=== PATIENT | female | born 1960 | race Caucasian/White ===

== ENCOUNTER → 2020-03-10 | Day surgery (SDC) | payer OTHER ==
--- NOTE | 2020-03-09 18:20 | Pre Op History & Physical ---
DATE OF SURGERY: 03/10/2020. CHIEF COMPLAINT: Lesion in the right anterior tonsillar pillar. HISTORY OF PRESENT ILLNESS: This 59-year-old female has a one-month history of lesion in the right anterior tonsillar pillar. The patient has no dysphagia, odynophagia, or shortness of breath. She has no hoarseness. The patient has stopped smoking about 20 years ago, she is a social drinker. The lesion was initially noted by her dentist and on followup was still present. The area is not painful. The size of the lesion is the same. REVIEW OF SYSTEMS: System review showed no recent cardiovascular, respiratory, or GI problem. PAST MEDICAL HISTORY: The patient has history of aortic valvular disease, had an aortic valve replacement. She has no hypertension or diabetes. PAST SURGICAL HISTORY: The patient has aortic valve replacement, laminectomy, and three C sections. ALLERGIES: SHE IS ALLERGIC TO PENICILLIN, CEPHALOSPORINS, AND IODINE. MEDICATIONS: She is on Eliquis, , Lasix, metoprolol, Klor-Con, aspirin, Tylenol, Zetia, and SOCIAL HISTORY: She stopped smoking about 20 years ago. She is a social drinker. FAMILY HISTORY: Noncontributory. PHYSICAL EXAMINATION: VITAL SIGNS: The patient's vital signs were within normal limits. HEENT: Ear exam showed normal tympanic membrane bilaterally. Nasal exam showed no obvious abnormality. Oropharynx and oral cavity show lesion in the anterior tonsillar pillar about half a cm in the superior portion. No other abnormality was noted. NECK: No lymph node or thyroid palpable. CHEST: Showed good air entry bilaterally. CARDIOVASCULAR: S1, S2. No murmur noted. ASSESSMENT AND PLAN: Mrs. Tolentino has lesion in the right anterior tonsillar pillar. A CT scan of the neck with contrast was performed. This did not show any other abnormality. The suggested treatment is panendoscopy, excisional biopsy and other necessary procedure. Complication of procedure includes, but not limited to bleeding, infection, perforation of the esophagus, pneumomediastinum, oral incompetence, wound breakdown, poor cosmetic result, hypernasal speech, persistent recurrence of the lesion and bleeding disorder. The alternative will be continue observation, biopsy of lesion in the office setting. The patient has been advised to stop her aspirin at least seven days before surgery and she was told by her lean manager that she could stop her Eliquis about three days before. Preoperatively, the patient was noted to have an elevated potassium. She was advised to stop her potassium about five days before surgery. The patient has elected to undergo surgical procedure. MD AZAM Washburn/MODL /[id number]
[~2020-03-10] MED LIST: ACETYL PO; ALPHA LIPOIC A200 MG PEG; ASPIR 8181 MG PO; BUPIVACAINE 0.5%/EPI 30 ML SDV INJ ONE; CLINDAMYCIN 300MG 50 ML IV ONE; CURCUMIN PO; DEXAMETHASONE SOD PHOS INJ 4 MG/ML VIAL ONE; DHEA25 MG PO; ELIQUIS2.5 MG PO; EPINEPHRINE HCL 1:1000 1ML 1 MG/ML AMP ONE; ETOMIDATE 2 MG/ML 10 ML INJ IV ONE; FENTANYL CITRATE/PF 100MCG/2 ML INJ ONE; FUROSEMIDE40 MG PO; GEMFIBROZIL600 MG PO; KLOR-CON20 MEQ PO; LIDOCAINE 1% W/EPINEPHRINE 20 ML VIAL ONE; LIDOCAINE HCL (LTA) 4 ML SOLN ONE; LIDOCAINE HCL 2% JELLY 5 ML TUBE ONE; LIDOCAINE HCL 2% LOCAL INJ 5 ML SDV VIAL INJ ONE; METOPROLOL SUCC25 MG PO; MIDAZOLAM HCL 2 MG/2 ML VIAL ONE; NIFEDIPINE10 MG PO; OMEGA 3-6-9 11200 M1 PO; ONDANSETRON HCL INJ 2MG/ML 2ML 2 MG/ML VIAL ONE; OXYMETAZOLINE HCL 0.05% NAS 1 SPRAY BTL ONE; PHOSPHATIDYLSERI1 GM PO; ROCURONIUM BROMIDE 10 MG/ML 5ML VIAL IV ONE; SCOPOLAMINE 1.5 MG PATCH ONE; SEVOFLURANE INHAL SOLN 250 ML PEN BTL ONE; SOMATROPIN INJ; SUCCINYLCHOLINE CHLORIDE 20 MG/ML 10ML VIAL ONE; TYLENOL EXTRA500 MG PO; UBIQUINOL100 MG PO; VITAMIN D310 MCG PO; ZETIA10 MG PO; [UNRECOGNIZED DRUG - OTHER] PO
--- NOTE | 2020-03-10 07:05 | NUR ---
SPIRITUAL CARE - Pre-Surgery Assessment: Pt in bed. Pt's at bedside. Pt reported supportive attention from family and friends. Intervention: Provided pastoral presence, hospitality, and sympathetic listening. Acquainted pt with availability of supervisor beater room while hospitalized. Outcome: Pt expressed appreciation for visit. No need for follow up indicated at this time. MOHAMUD [facility] Department O: [phone]
[2020-03-10 09:25] VITALS: BP 158/85
--- NOTE | 2020-03-10 10:48 | Operative Report ---
DATE OF PROCEDURE: 03/10/2020 SURGEON: Ramiro Spivey MD CHIEF COMPLAINT: Lesion in the right tonsil. POSTOPERATIVE DIAGNOSIS: Lesion in the right tonsil. PROCEDURES: Direct laryngoscopy, rigid esophagoscopy, rigid bronchoscopy, excision of lesion in the right tonsil fossas with appropriate closure. ANESTHESIA: Anesthesiology Group. INDICATIONS: This 59-year-old female, who was noted to have a lesion in the right tonsillar fossa by her dentist about a few months ago. Lesion has not changed in size. The patient is a nonsmoker. No trauma to the area was noted. She is a social drinker. On examination, she was noted to have a lesion in superior midportion of the tonsillar fossa on the right side about 0.5 cm. No other abnormality was noted, it was decided that panendoscopy, excisional biopsy of the lesion and other necessary procedure will be beneficial for her. DESCRIPTION OF PROCEDURE: The patient was taken to the operating room, put under general anesthesia, endotracheally intubated. The patient was asked to start her back from 24 hours before surgery and was given clindamycin preop because of her aortic valve replacement. The patient was positioned and rigid esophagoscopy was performed. The esophagoscope was passed through the cricopharyngeus muscle. The esophagus was examined to about 25 cm from the incisor. No abnormality was noted. The esophagoscope was retrieved. The rigid bronchoscopy was performed. A size #4 bronchoscope with Mcpherson wire was used. The bronchoscope was passed parallel to the endotracheal tube. Endotracheal tube cuff was deflated. Trachea was examined down to the bette. No abnormality was noted. The bronchoscope was retrieved. The direct laryngoscopy was performed. The Cliff laryngoscope was used. Oropharynx and oral cavity were examined. The lesion was noted in the right tonsillar fossa. The patient had previous tonsillectomy. No abnormality was noted in the oropharynx and oral cavity. The larynx was examined both the true and false vocal folds were examined. No abnormality was noted. The piriform sinus on either side was examined. No abnormality was noted. Excision of the lesion was undertaken. A McIvor mouth gag was inserted. The area on the right tonsillar fossa was injected with 1% Xylocaine with 1:100,000 epinephrine for hemostasis. The area was excised and sent for permanent section. Hemostasis in the tonsil fossas, where the lesion was excised, was achieved using the suction cautery. The oropharynx, oral cavity, and nasopharynx were irrigated with copious amount of normal saline. The stomach was suctioned out at the end of procedure. The patient tolerated the above procedure well with estimated blood loss was about 5 mL. She was able to be transferred to recovery room in stable condition. MD AZAM Washburn/MIAH /[id number]
== END | disposition home or self-care (01) ==
LOC: OR 05:42
PROVIDERS: ATTEND Otolaryngology Otolaryngology/Facial Plastic Surgery
DX: J35.9 Chronic disease of tonsils and adenoids, unspecified (principal); M19.90 Unspecified osteoarthritis, unspecified site; Z88.0 Allergy status to penicillin; Z88.8 Allergy status to other drugs, medicaments and biological substances; Z91.041 Radiographic dye allergy status; Z01.810 Encounter for preprocedural cardiovascular examination; Z01.812 Encounter for preprocedural laboratory examination; Z11.59 Encounter for screening for other viral diseases; Z79.82 Long term (current) use of aspirin; Z79.02 Long term (current) use of antithrombotics/antiplatelets; Z95.4 Presence of other heart-valve replacement; Z87.891 Personal history of nicotine dependence
CPT/HCPCS: 31540; 31622; 36415; 43191; 84132; 87635; 88305; 93005; J0330; J1100; J2001 ×2; J2250; J2405; J3010; 88304; J0171